=== PATIENT | male | born 1980 ===

== ENCOUNTER 2025-08-07 14:31 | Outpatient (AMB) | payer OTHER, SELFPAY ==
--- NOTE | 2025-08-07 14:52 | MHC.PC.OV ---
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 Accompanied by: Self / Same As Patient Allergies No Known Allergies Allergy (Verified 08/07/25 15:31) Medication List - Last Reconciled 08/07/[address] PA-C meloxicam 15 mg PO DAILY prednisone 40 mg (2 x 20 mg) PO DAILY 5 days Tobacco use date assessed: 08/07/25 Dental Screening Dental Screen Date: 08/07/25 Did you have a dental visit in the last 12 months?: Yes Did you have a dental problem in the last 6 months where you did not have access to dental care?: No Was dental information given to patient?: Patient has dentist HPI HPI Comments History of Present Illness Details History of Present Illness The patient is a 44 year old male presenting for evaluation of chronic lower back pain. He attributes this to wear and tear from 15 years in the . An MRI in early 2023 revealed a bulging disc or a burst thecal sac. In December of the past year, he received a gluteal cortisone injection for pain that radiated down his hamstring and into his hip, which provided relief for a time. The pain returned around April, but the hip and hamstring symptoms have not recurred, though the lower back tenderness persists. 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 He was previously prescribed cyclobenzaprine, a muscle relaxer, which he has only taken once or twice as he does not like taking medications and needs to remain alert for his job. He currently takes nothing for the pain. He reports being very active, trying to do yoga and stretching when time permits. Past surgical history is significant for a left ACL replacement 20 years ago. He also reports possible hearing loss, which he associates with his service. Family history is notable for breast cancer in his maternal grandmother, kidney cancer in his father, a heart attack in his father at age 52, a heart attack in his mother at age 65, and type 2 diabetes on his father's side. Social History - Employment: The patient is a color specialist in the , stationed at [employer]. - Marital Status: He is and has two young daughters. - Residence: He lives in [place], [place], after recently moving from [place] to be closer to family. - Exercise: He tries to do yoga and stretching to manage his back pain. - Nutrition: He practices intermittent fasting. [facility] Medical History (Updated 08/07/25 @ 16:[address] PA-C) Healthcare maintenance Chronic lower back pain Family History Father Heart attack BP (high blood pressure) Cancer of kidney Diabetes High cholesterol Mother Heart attack Maternal Grandmother Breast cancer Social History Housing: House Alcohol intake: current Alcohol intake frequency: a few times a month Patient Tobacco Use Status: Never used Tobacco service: Yes Current occupational status: employed Cognitive needs: No Hearing needs: No Vision needs: No Questionnaire PHQ-9 Over the last 2 weeks, how often have you been bothered by any of the following problems? 1. Little interest or pleasure in doing things: not at all 2. Feeling down, depressed, or hopeless: not at all 3. Trouble falling or staying asleep, or sleeping too much: not at all 4. Feeling tired or having little energy: not at all 5. Poor appetite or overeating: not at all 6. Feeling bad about yourself - or that you are a failure or have let yourself or your family down: not at all 7. Trouble concentrating on things, such as reading the newspaper or watching television: not at all 8. Moving or speaking so slowly that other people could have noticed. Or the opposite - being so fidgety or restless that you have been moving around a lot more than usual: not at all 9. Thoughts that you would be better off or of hurting yourself in some way: not at all Total score: 0 Depression Screening Interpretation: Negative Depression Screening Done: Yes 49296 - PHQ-9 Billing: Yes Source: Developed by Drs. Matt Acosta, Nathaly Rosen, Pedro Jett and colleagues, with an educational genet from [employer] (formerly [employer] Thrive Questionnaire Date Thrive assessed: 08/07/25 I am a: Patient What is your living situation today?: I have a steady place to live Within the past 12 months, did the food you bought not last and you didn't have the money to get more?: Never true Within the past 12 months, did you worry whether your food would run out before you got money to buy more?: Never true Do you have trouble paying for medicines?: No Do you have trouble getting transportation to medical appointments?: No Do you have trouble paying your heating and electricity bill?: No Do you have trouble taking care of your child, family member or friend?: No Do you have trouble with day-to-day activities such as bathing, preparing meals, shopping, managing finances, etc.?: No Are you currently unemployed and looking for a job?: No Are you interested in more education?: No Please select the resources that you would like help with: None THRIVE Score: 0 AUDIT C Alcohol Use Questionnaire (AUDIT-C) 1. How often do you have a drink containing alcohol?: 2-4 times a month 2. How many drinks containing alcohol do you have on a typical day when you are drinking?: 1 or 2 3. How often do you have six or more drinks on one occasion?: Never Total Score: 2 Score Reviewed/Action Taken: Yes YARELY-7 AMB Questionnaire YARELY-7 Date YARELY - 7 assessed: 08/07/25 Feeling nervous, anxious, or on edge: 0 = Not at all Not being able to stop or control worryin = Not at all Worrying too much about different things: 0 = Not at all Trouble relaxin = Not at all Being so restless that it is hard to sit still: 0 = Not at all Becoming easily annoyed or irritable: 0 = Not at all Feeling afraid as if something awful might happen: 0 = Not at all Total YARELY-7 score (0-4 normal; 5-9 mild; 10-14 moderate; 15-21 severe): 0 Source: Developed by Drs. Matt Acosta, Nathaly Rosen, Pedro Jett and colleagues, with an educational genet from [employer] (formerly [employer]). YARELY-7 Assessment Billing YARELY-7 Assessment Tool: YARELY-7 Assessment 19264 Review of Systems Narrative Review of Systems - Constitutional: Denies recent falls or hospitalizations. - HEENT: Reports possible hearing loss. - Eyes: Denies vision problems. - Cardiovascular: Denies chest pain or shortness of breath on exertion or when lying flat. - Gastrointestinal: Denies black or bloody stools and unintentional weight loss. - Musculoskeletal: Reports chronic lower back pain which is tender, and in the past radiated down his hamstring and into his hip. - Psychiatric: Denies a history of anxiety or depression requiring medication. Const All systems reviewed & are unremarkable except as noted in HPI and below Physical exam (Primary Care) Vital Signs: Last Vital Signs Temp 98.0 F 08/07/25 15:00 Pulse 55 08/07/25 15:00 Resp 14 08/07/25 15:00 BP 113/56 L 08/07/25 15:00 Pulse Ox 98 08/07/25 15:00 Oxygen Delivery Method Room Air 08/07/25 15:00 Care Plan Goal for BP management: <140/90 at Goal BMI result Body Mass Index 26.2 BMI Assessment/Plan discussion: High BMI High, discussed plan: lifestyle, weight reduction, dietary, physical activity, alcohol moderation and other Tobacco/Smoking Status: Tobacco use Status Tobacco use date assessed 08/07/25 08/07/25 14:56 Patient Tobacco Use Status Never used Tobacco 08/07/25 15:04 PHQ-9: PHQ-9 Score PHQ-9: Total score 0 08/07/25 15:04 Depression Screening Interpretation: Negative Thrive Assessment: Date of Thrive Assessment Date Thrive assessed 08/07/25 08/07/25 14:56 Narrative Physical Exam Appearance: Alert. Oriented X3. No acute distress. Head: Normal external exam. Normocephalic. Atraumatic. Eyes: Pupils are equal, round, and reactive to light. Extraocular movements intact. Conjunctiva and sclera normal. Eyelids normal. Ears: External auditory canal normal. Tympanic membranes normal. Throat: Pharynx normal. Uvula midline. Moist mucous membranes. Neck: Normal inspection. Neck supple. Full range of motion. No adenopathy. Thyroid Normal. No meningeal signs. No neck mass noted. Cardiovascular: Normal heart rate and rhythm. Heart sound normal. No murmurs noted. Pulses normal throughout. Respiratory: No respiratory distress. Painless inspiration. Breath sounds normal. No wheezes/rales/rhonchi noted. Chest nontender. No accessory muscle usage noted or decreased air movement noted. Abdomen: Soft and nontender. No distention noted. No organomegaly noted. Back: No costovertebral angle tenderness. Full range of motion noted. Lower back is tender, especially with bending and sneezing. Skin: Skin warm and dry. Normal skin color. Normal skin turgor. No rashes/lesions/lacerations noted. Extremities: No lower extremity edema. Extremities exhibit normal range of motion. Extremities nontender. Neuro: Oriented X 3. No motor deficit. No sensory deficit. Reflexes normal. Results Reviewed Results Reviewed: - An MRI performed in early 2023 showed a bulging disc. Coding Level of Care Code New Pt Level 4 (65079) Add On Problem Visit Only Diagnoses Chronic lower back pain M54.50; G89.29 Healthcare maintenance Z00.00 Additional Codes PHQ-9 - 84374 - PHQ-9 Billing: Yes ([id number]) YARELY-7 Assessment Billing - YARELY-7 Assessment Tool: YARELY-7 Assessment 52854 ([id number]) Time Spent (min) 60 Assessment & Plan Assessment & Plan (1) Chronic lower back pain: Code(s): M54.50 - Low back pain, unspecified; G89.29 - Other chronic pain Category: Medical Plan: The patient's chronic low back pain is likely secondary to a bulging disc identified on a prior MRI and occupational wear and tear. He has a history of associated sciatica that responded to a cortisone injection. Given his aversion to sedating medications, he will be prescribed meloxicam, a non-sedating anti-inflammatory, and a short course of prednisone for acute flares. Referrals will be sent to Orthopedics and Pain Management for further evaluation and management. (2) Healthcare maintenance: Code(s): Z00.00 - Encounter for general adult medical examination without abnormal findings Category: Medical Plan: The patient is due for an annual physical exam, which he plans to schedule in September. Comprehensive lab work was ordered to be completed fasting prior to his visit, including a CBC, CMP, hemoglobin A1c, lipid panel, magnesium, urinalysis, TSH, PSA, vitamin B12, and vitamin D. Colon cancer screening was discussed; given no personal or family history of colon cancer, screening can be deferred until age 45. The options of a colonoscopy or Cologuard test were explained. Plan Plan Patient was informed and verbally consented to the use of an ambient scribe for clinic note documentation during this visit. 1. Chronic Low Back Pain The patient's chronic low back pain is likely secondary to a bulging disc identified on a prior MRI and occupational wear and tear. He has a history of associated sciatica that responded to a cortisone injection. Given his aversion to sedating medications, he will be prescribed meloxicam, a non-sedating anti-inflammatory, and a short course of prednisone for acute flares. Referrals will be sent to Orthopedics and Pain Management for further evaluation and management. 2. Health Maintenance The patient is due for an annual physical exam, which he plans to schedule in September. Comprehensive lab work was ordered to be completed fasting prior to his visit, including a CBC, CMP, hemoglobin A1c, lipid panel, magnesium, urinalysis, TSH, PSA, vitamin B12, and vitamin D. Colon cancer screening was discussed; given no personal or family history of colon cancer, screening can be deferred until age 45. The options of a colonoscopy or Cologuard test were explained. Discussion Notes I have established this patient for a new patient visit with the chief complaint of low back pain. We discussed that his symptoms are consistent with chronic low back pain, likely from a bulging disc, with a history of sciatica. I explained that due to his preference to avoid sedating medications like the previously prescribed cyclobenzaprine, I would prescribe the non-sedating anti-inflammatory meloxicam and a steroid, prednisone, for use during acute flares to decrease inflammation. I am referring him to both Orthopedics and Pain Management for further specialized care and have instructed him to notify us if he does not receive a call to schedule an appointment within a month. We have deferred his annual physical to September, but I ordered a comprehensive panel of fasting labs to be completed before that appointment, including a CBC, CMP, HbA1c, lipids, thyroid, PSA, vitamin levels and a urinalysis. We also discussed preventative screening for colon cancer, and I advised that per current guidelines, he can begin at age 45, explaining the options of both colonoscopy and the Cologuard test. Orders: Orders C Reactive Protein Today Z00.00 - Encounter for general adult medical examination without abnormal findings Complete Blood Count Auto Diff Today Z. - Encounter for general adult medical examination without abnormal findings Erythrocyte Sedimentation Rate Today Z. - Encounter for general adult medical examination without abnormal findings Lipid Panel Today Z. - Encounter for general adult medical examination without abnormal findings Vitamin D 25-OH Total Today Z. - Encounter for general adult medical examination without abnormal findings PSA,Total (Free>4and<10) Today Z. - Encounter for general adult medical examination without abnormal findings Comprehensive [place]. Panel Fast Today Z. - Encounter for general adult medical examination without abnormal findings Hemoglobin A1c Today Z. - Encounter for general adult medical examination without abnormal findings Magnesium Today Z. - Encounter for general adult medical examination without abnormal findings Vitamin B12 and Folate Today Z. - Encounter for general adult medical examination without abnormal findings UA CC w/rflx Micro + Cult Today Z. - Encounter for general adult medical examination without abnormal findings TSH reflex Free T4 Today Z. - Encounter for general adult medical examination without abnormal findings Referrals Pain Management Referral G89.29 - Other chronic pain, M54.50 - Low back pain, unspecified Orthopedics Referral G89.29 - Other chronic pain, M54.50 - Low back pain, unspecified Medications: New meloxicam 15 mg PO DAILY 30 tabs 3RF prednisone 40 mg (2 x 20 mg) PO DAILY 10 tabs 3RF 5 days Patient Instructions: Patient Instructions - For severe flare-ups of your back pain, take the prescribed prednisone for 5 days and the meloxicam daily for 5 days. - The prescriptions for meloxicam and prednisone have been sent to [facility] on [facility] in [place], [place]. - You will receive referrals to see specialists in Orthopedics and Pain Management. - Please let our office know if you do not receive a call from the specialists' offices within a month. - Please get your blood work done before your annual physical in September. - You must fast for 10-12 hours before the blood test; you may drink water or black coffee with no cream or sugar. - You can schedule your annual physical exam for September. - You do not need a colonoscopy for colon cancer screening until you are 45 years old.
[2025-08-07 15:00] VITALS: BP 113/56; PULSE 55; RESP 14; TEMP 36.7; O2SAT 98; BMI 26.2
== END 2025-08-07 15:29 | disposition home or self-care (01) ==
LOC: HO.HMCSH 14:31
PROVIDERS: PCP Physician Assistant Medical; Visit Provider Physician Assistant Medical
DX: M54.50 Low back pain, unspecified (principal); G89.29 Other chronic pain; Z00.00 Encounter for general adult medical examination without abnormal findings

== ENCOUNTER → 2025-08-07 14:31 | Outpatient (BNVA) | payer OTHER, SELFPAY | PROVIDERS: PCP Physician Assistant Medical; Visit Provider Physician Assistant Medical | DX: M54.50 Low back pain, unspecified (principal); G89.29 Other chronic pain; Z13.31 Encounter for screening for depression; Z13.39 Encounter for screening examination for other mental health and behavioral disorders | CPT/HCPCS: 96127; 99202 ==